=== PATIENT | male | born 1960 | race American Indian/Alaskan Native ===

== ENCOUNTER 2018-09-13 10:09 | Emergency (ER) | payer MEDICAID, OTHER ==
[2018-09-13 10:25] VITALS: BP 153/90; PULSE 89; RESP 18; TEMP 98.6; O2SAT 100
--- NOTE | 2018-09-13 10:39 | C.PDOC ---
History Of Present Illness 58 y/o male presents to the ER complaining of right knee pain which has been present for the past 4 days. Patient states that he has been regularly heating the area with hot soaks and epsom salt. Patient reports that the heating makes the pain worse.Denies having weakness and numbness. Time Seen by Provider: 09/13/18 10:32 Chief Complaint (Nursing): Lower Extremity Problem/Injury History Per: Patient History/Exam Limitations: no limitations Onset/Duration Of Symptoms: Days Current Symptoms Are (Timing): Still Present Severity: Moderate Past Medical History Reviewed: Historical Data, Nursing Documentation, Vital Signs Vital Signs: Last Vital Signs Temp 98.6 F 09/13/18 10:23 Pulse 89 09/13/18 10:23 Resp 18 09/13/18 10:23 BP 153/90 H 09/13/18 10:23 Pulse Ox 100 09/13/18 10:23 - Medical History PMH: Anxiety, Diabetes Surgical History: No Surg Hx Family History: States: No Known Family Hx - Social History Hx Tobacco Use: No Hx Alcohol Use: No Hx Substance Use: Yes (marijuana) - Immunization History Hx Tetanus Toxoid Vaccination: No Hx Influenza Vaccination: No Hx Pneumococcal Vaccination: No Review Of Systems Except As Marked, All Systems Reviewed And Found Negative. Musculoskeletal: Positive for: Other (right knee pain) Neurological: Negative for: Weakness, Numbness Physical Exam - Physical Exam Appears: No Acute Distress, Other (morbidly obese black male) Skin: Normal Color, Warm, Dry Head: Atraumatic, Normacephalic Eye(s): bilateral: Normal Inspection Nose: Normal Oral Mucosa: Moist Neck: Supple Chest: Symmetrical Extremity: Normal ROM, No Tenderness, Swelling (mild swelling to right knee), Other (inflammation to right knee, no joint effusion, no laxity, no lower extremity edema) Neurological/Psych: Oriented x3, Normal Speech Gait: Steady ED Course And Treatment O2 Sat by Pulse Oximetry: 100 (RA) Pulse Ox Interpretation: Normal Medical Decision Making Medical Decision Making: minor pain/swelling R knee x 4 days no injury no effusion LOW susp of DVT STOP hot/salt soaks ice/NSAIDS educated Disposition Doctor Will See Patient In The: Office Counseled Patient/Family Regarding: Studies Performed, Diagnosis - Disposition Referrals: [facility] [Outside] [facility] [Outside] [facility] [Outside] Jemma Hill MD [Staff Provider] - Disposition: HOME/ ROUTINE Disposition Time: 10:39 Condition: GOOD Additional Instructions: ice packs 1/2 hour per hour, nothing hot NO MORE HOT SOAKS OF ANY KIND!!!! motrin/Advil/Tylenol as able opt f/u with Dr. Benton and/or Dr. Hill for further eval. Instructions: Knee Sprain (DC) Forms: [employer] ([place]) - Clinical Impression Clinical Impression: Knee pain, right - Scribe Statement The provider has reviewed the documentation as recorded by the [facility] Provider Attestation: All medical record entries made by the Scribe were at my direction and personally dictated by me. I have reviewed the chart and agree that the record accurately reflects my personal performance of the history, physical exam, medical decision making, and the department course for this patient. I have also personally directed, reviewed, and agree with the discharge instructions and disposition.
== END 2018-09-13 10:44 | disposition home or self-care (01) ==
LOC: C.ER 10:09
DX: M25.561 Pain in right knee (principal); E11.9 Type 2 diabetes mellitus without complications